=== PATIENT | male | born 1995 | race Caucasian/White ===

== ENCOUNTER 2022-03-15 07:10 | Emergency (ER) | payer MEDICAID ==
[~2022-03-15] VITALS: Ht 170.2 cm; Wt 68.0 kg
[2022-03-15 07:15] VITALS: BP 117/88
== END 2022-03-15 07:41 | disposition left against medical advice (07) ==
LOC: ER 07:10 → EDBD 07:10 → ER 07:41
DX: G40.909 Epilepsy, unspecified, not intractable, without status epilepticus (principal)
CPT/HCPCS: 99283